=== PATIENT | female | born 1980 | race African-American/Black ===

== ENCOUNTER 2018-01-29 12:11 | Emergency (ER) | payer OTHER ==
--- NOTE | 2018-01-29 12:21 | UC ---
Respiratory Complaint HPI - HPI Summary HPI Summary: 37 yo female presents with increased anxiety/stress. She tells me that in the past she was seeing her PCP and was being "helped" through anxiety issues and stress in her life. Over the last 8 months her symptoms have been returning. 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 She will rest and her symptoms will improve within a few hours. She was sent home from work last night due to these symptoms. She no longer has a PCP. This early afternoon she was getting ready to go to work and her symptoms began to return. Currently she denies fever, chills, cough, SOB, chest pain - but does feel chest "tightness", abdominal pain, n/v. - History of Current Complaint Stated Complaint: CONGESTION COUGH Time Seen by Provider: 01/29/18 12:21 Hx Obtained From: Patient Hx Last Menstrual Period: 12/29/17 Onset/Duration: Gradual Onset Severity Initially: Moderate Severity Currently: Moderate Pain Intensity: 7 Pain Scale Used: 0-10 Numeric - Allergies/Home Medications Allergies/Adverse Reactions: Allergies Allergy/AdvReac Type Severity Reaction Status Date / Time No Known Allergies Allergy Verified 01/29/18 12:30 PMH/Surg Hx/FS Hx/Imm Hx Psychological History: Anxiety - Surgical History Surgical History: Yes Surgery Procedure, Year, and Place: csection, d&c - Family History Known Family History: Positive: Unknown - Social History Occupation: Employed Full-time Lives: With Family Alcohol Use: None Substance Use Type: Marijuana Substance Use Comment - Amount & Last Used: this morning Smoking Status (MU): Light Every Day Tobacco Smoker Type: Cigarettes Amount Used/How Often: 5 per day - working on quitting Have You Smoked in the Last Year: Yes Household Exposure Type: Cigarettes - Immunization History Most Recent Influenza Vaccination: unknown Most Recent Tetanus Shot: unknown Most Recent Pneumonia Vaccination: never Review of Systems All Other Systems Reviewed And Are Negative: Yes Constitutional: Positive: Negative Skin: Positive: Negative Respiratory: Positive: Negative Cardiovascular: Positive: Other - Chest tightness Gastrointestinal: Positive: Negative Neurovascular: Positive: Negative Neurological: Positive: Negative Psychological: Positive: Anxious Physical Exam - Summary Physical Exam Summary: GENERAL: NAD. WDWN. No pain distress. SKIN: No rashes, sores, lesions, or open wounds. HEENT: Head: AT/NC Eyes: EOM intact. Conjunctiva clear without inflammation or discharge. Ears: Hearing grossly normal. TMs intact, no bulging, erythema, or edema. Nose: Nasal mucosa pink and moist. NTTP maxillary and frontal sinus. Throat: Posterior oropharynx without exudates, erythema, or tonsillar enlargement. Uvula midline. NECK: Supple. Nontender. No lymphadenopathy. CHEST: CTAB. No r/r/w. No accessory muscle use. Breathing comfortably and in no distress. CV: RRR. Without m/r/g. Pulses intact. Cap refill <2seconds ABDOMEN: Soft. NTTP. Bowel sounds present NEURO: Alert. PSYCH: Age appropriate behavior. Triage Information Reviewed: Yes Vital Signs: Vital Signs: Temp Pulse Resp BP Pulse Ox 98.7 F 80 16 132/86 99 01/29/18 12:24 01/29/18 12:24 01/29/18 12:24 01/29/18 12:24 01/29/18 12:24 Vital Signs Reviewed: Yes Re-Evaluation - Re-Evaluation First Eval Re-Evaluation Time: 13:17 Change: Improved Comment: Feels improved after hydroxyzine. Less tightness in chest and feels more relaxed. Respiratory Course/Dx - Course Course Of Treatment: EKbpm NSR. 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 No ST changes as read by Dr. Link. Suspect anxiety/stress reaction. Pt was given 50mg of hydroxyzine in the clinic and significantly improved - reports feeling more relaxed and less thightness in her chest. Discussed with pt that if her symptoms worsen or if she develops new symptoms - to go to the ED for a further workup. Strongly advised to schedule a follow up with a new PCP as soon as possible, preferably within the next week or two. Pt was agreeable to this plan and voiced understanding. - Differential Dx/Diagnosis Provider Diagnosis: Anxiety Discharge - Sign-Out/Discharge Documenting (check all that apply): Patient Departure All imaging exams completed and their final reports reviewed: No Studies - Discharge Plan Condition: Stable Disposition: HOME Prescriptions: hydrOXYzine HCl [Hydroxyzine HCl] 50 mg PO TID PRN #30 tablet PRN Reason: Anxiety Patient Education Materials: Relaxation and Meditation (ED), Anxiety (ED), Breathing Techniques (ED) Forms: *Work Release Referrals: No Primary Care Phys,NOPCP [Primary Care Provider] - [facility] REFERRAL [Outside] - As Soon As Possible Additional Instructions: If you develop a fever, shortness of breath, chest pain, new or worsening symptoms - please call your PCP or go to the ED. 1) Please schedule an appointment as soon as possible with a new Primary Care Physician - Billing Disposition and Condition Condition: STABLE Disposition: Home
[2018-01-29 12:29] VITALS: BP 132/86
[2018-01-29] MEDS ORDERED: hydrOXYzine HCL TAB* 50 MG PO ONE (12:34)
[2018-01-29] MEDS ORDERED: hydrOXYzine HCL TAB* 25 MG PO ONE (12:43)
== END 2018-01-29 13:25 | disposition home or self-care (01) ==
LOC: UCEAST 12:11
DX: F41.9 Anxiety disorder, unspecified (principal); F17.210 Nicotine dependence, cigarettes, uncomplicated
CPT/HCPCS: 93005; 99212; A9270-GY; G0463

== ENCOUNTER 2018-04-04 08:40 | Emergency (ER) | payer OTHER ==
[2018-04-04 08:53] VITALS: BP 134/88
--- NOTE | 2018-04-04 09:46 | UC ---
Lower Extremity/Ankle HPI - HPI Summary HPI Summary: ONSET OF LEFT HEEL PAIN ABOUT 2 DAYS AGO. NO DISCRETE INJURY OR TRAUMA THAT SHE CAN RECALL. PAIN IS WORSE WHEN SHE PUTS ON HER SHOES AND TRIES TO WEIGHT- BEAR. 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 - History of Current Complaint Chief Complaint: UCLowerExtremity Stated Complaint: HEEL PAIN Time Seen by Provider: 04/04/18 08:57 Hx Obtained From: Patient Hx Last Menstrual Period: 04/02/18 Onset/Duration: Gradual Onset, Lasting Days, Still Present Severity Initially: Moderate Severity Currently: Moderate Pain Intensity: 5 Pain Scale Used: 0-10 Numeric Aggravating Factor(s): Standing, Ambulation Alleviating Factor(s): Rest Able to Bear Weight: Yes - Allergies/Home Medications Allergies/Adverse Reactions: Allergies Allergy/AdvReac Type Severity Reaction Status Date / Time No Known Allergies Allergy Verified 04/04/18 08:54 PMH/Surg Hx/FS Hx/Imm Hx Cardiovascular History: Hypertension - Surgical History Surgical History: Yes Surgery Procedure, Year, and Place: csection,2 d&c 4 - Family History Known Family History: Positive: Non-Contributory - Social History Alcohol Use: Occasionally Substance Use Type: Marijuana Substance Use Comment - Amount & Last Used: this morning Smoking Status (MU): Light Every Day Tobacco Smoker Type: Cigarettes Amount Used/How Often: 5 per day - working on quitting Have You Smoked in the Last Year: Yes Household Exposure Type: Cigarettes - Immunization History Most Recent Influenza Vaccination: unknown Most Recent Tetanus Shot: unknown Most Recent Pneumonia Vaccination: never Review of Systems All Other Systems Reviewed And Are Negative: Yes Constitutional: Positive: Negative Skin: Positive: Negative Respiratory: Positive: Negative Cardiovascular: Positive: Negative Gastrointestinal: Positive: Negative Musculoskeletal: Positive: Other: - LEFT HEEL PAIN Physical Exam Triage Information Reviewed: Yes Appearance: Well-Appearing, No Pain Distress, Well-Nourished Vital Signs: Initial Vital Signs Temp 97.9 F 04/04/18 08:50 Pulse 83 04/04/18 08:50 Resp 18 04/04/18 08:50 BP 134/88 04/04/18 08:50 Pulse Ox 100 04/04/18 08:50 Vital Signs Reviewed: Yes Eyes: Positive: Conjunctiva Clear ENT: Positive: Hearing grossly normal Neck: Positive: Supple Respiratory: Positive: No respiratory distress, No accessory muscle use Cardiovascular: Positive: Pulses Normal Abdomen Description: Positive: Soft Musculoskeletal: Positive: ROM Intact, No Edema, Other: Neurological: Positive: Alert Psychological: Positive: Age Appropriate Behavior Skin: Negative: Rashes Diagnostics - Radiology LEFT HEEL XRAYS Radiology Interpretation Completed By: Radiologist Summary of Radiographic Findings: UNREMARKABLE Lower Extremity Course/Dx - Course Course Of Treatment: X-RAY READ UNREMARKABLE BY RADIOLOGY. THERE IS A SMALL CALCIFICATION OF THE ACHILLES TENDON INSERTION RIGHT WHERE THE POINT OF TENDERNESS IS. THIS MAY OR MAY NOT BE CONTRIBUTING TO HER DISCOMFORT. SHAILESH WRAP APPLIED TO HELP WITH STABILITY AND SUPPORT. ADVISED TO REST, ICE, ELEVATE. WILL GIVE TODAY OFF WORK. FOLLOW-UP WITH ORTHO IF NOT IMPROVING EXPECTED. - Differential Dx/Diagnosis Provider Diagnosis: Left Achilles tendinitis Discharge - Sign-Out/Discharge Documenting (check all that apply): Patient Departure All imaging exams completed and their final reports reviewed: Yes - Discharge Plan Condition: Stable Disposition: HOME Patient Education Materials: Achilles Tendinitis (ED) Forms: *Work Release Referrals: Breanna Hidalgo MD [Medical Doctor] - If Needed Additional Instructions: X-RAY TODAY SHOWED MILD CALCIFICATION OF YOUR ACHILLES TENDON. NO FRACTURE OR OTHER ABNORMALITY OF THE HEEL NOTED. REST, ICE, ELEVATE. IF YOU DO NOT IMPROVE EXPECTED OVER THE NEXT COUPLE OF WEEKS FOLLOW-UP WITH YOUR PCP OR ORTHO. - Billing Disposition and Condition Condition: STABLE Disposition: Home
== END 2018-04-04 09:55 | disposition home or self-care (01) ==
LOC: UCEAST 08:40
DX: M76.62 Achilles tendinitis, left leg (principal); I10 Essential (primary) hypertension; F17.210 Nicotine dependence, cigarettes, uncomplicated
CPT/HCPCS: 99212; G0463

== ENCOUNTER 2019-05-19 01:06 | Inpatient (IN) | payer OTHER ==
[2019-05-19] MEDS ORDERED: Lactated Ringers 1000 ML Bag* 1,000 ML IV ONE (04:12)
[2019-05-19] MEDS ORDERED: Buffered Lidocaine 1% SYRIN* 1 ML/SYRINGE INTRADERM ONE (04:12)
[2019-05-19] MEDS ORDERED: ceFOXitin 2 GM IVPREMIX* 2 GM/50 ML BAG IVPB ONE (04:12)
--- NOTE | 2019-05-19 04:22 | HP ---
General Information - Reason for Visit Pt presents with frequent ctx since about midnight tonight. Getting more uncomfortable. Pt has scheduled repeat C/S in 2 days as she has a h/o two prior C/S. Pt also still desires BTL. - General Information Maternal Age: 38 Grav: 4 Para: 2 SAB: 0 IEA: 1 Estimated Due Date: 05/27/19 Determined By: LMP Maternal Blood Type and Rh: B Positive - Results this Serology/RPR Result: Non-Reactive Rubella Result: Non-Immune HBsAg Result: Negative HIV Result: Negative GBS Culture Result: Negative Past Medical History Delivery History: Hx C/Section - x2 Pertinent Past Medical History: See Records - obesity, PCOS Pertinent Past Surgical History: See Records - C/S x2, D&C x3 - Antepartal Records Antepartal Records: Reviewed, Complicated by: - C/S x2, AMA Review of Systems Constitutional: Uncomfortable CV Complaint: No Respiratory: Shortness of Breath: No Gastrointestinal: No Nausea/Vomiting Genitourinary: No Dysuria, No Bleeding, No Leaking Fluid Musculoskeletal: Contractions Neurological: No Headache Movement: Normal Exam Allergies/Adverse Reactions: Allergies No Known Allergies Allergy (Verified 05/19/19 01:37) VS normal, afebrile - Measurements Height: 5 ft 7 in Weight: 223 lb Weight in lbs: [phone] Body Mass Index (BMI): 34.9 Pre- Weight: 167 lb Weight Gained This : 56 lbs and 0 ozs - Exam Breast: Breast Exam Deferred CVA: No CVA Tenderness Heart: Normal Rhythm/Heart Sounds HEENT: No Significant Findings Lungs: Clear Bilaterally Rectal: Rectal Exam Deferred - Abdominal Exam Abdomen Exam: Non-Tender, Fundal Height Consistent with Dates - Ultrasound/Biophysical Profile Ultrasound Status: Not Done Targeted Exam Findings Cervical Exam: Closed Effacement: 70% Station: -2 Membrane Status: Intact Bleeding/Discharge: None EFM Findings - External Monitor Findings Baseline Heart Rate: 150 External Monitor Findings: Accelerations Present, No Pattern of Variable or Late Decelerations, Variability Moderate, Baseline Stable Contractions: Regular, Moderate Contraction Frequency: Q3 min Assessment/Plan - Assessment Pt at 38+6 wks and h/o C/S x2 presents with very regular and painful ctx, Q3 min. Over a few hours of observation, ctx did not improve. After discussion pt desires to proceed with repeat C/S today. She also still strongly desires BTL. Consent signed. Will proceed with surgery tonight. - Plan Plan: C/S Delivery - Date/Time of Admission Date of Admission: 05/19/19 Time of Admission: 04:10
[2019-05-19 05:00] LABS: ABS Eosinophils 0.1 10^3/ul (0-0.6); ABS Monocytes 0.8 10^3/ul (0-0.8); Eosinophil % 1.6 %; Hematocrit 32 % (35-47); Hemoglobin 10.9 g/dL (12.0-16.0); Lymphocyte % 21.9 %; Mean Corpuscular HGB Conc 34 g/dL (31-36); Mean Corpuscular Hemoglobin 27 pg (27-31); Mean Corpuscular Volume 80 fL (80-97); Mean Platelet Volume 9.3 fL (7.4-10.4); Nucleated Red Blood Cells % 0.2; Platelet Count 134 10^3/uL (150-450); Red Blood Count 4.06 10^6 /uL (3.70-4.87); Red Cell Distribution Width 14 % (10-15)
[2019-05-19] MEDS ORDERED: Lactated Ringers 1000 ML Bag* 1,000 ML IV SCH ×2 (05:00→08:00)
[2019-05-19] MEDS ORDERED: Sodium Citrate/Citric Acid* 15 ML UDC ONE (05:16)
[2019-05-19 05:40] LABS: Urine Benzodiazepine Screen None Detected (None Detect); Urine Opiates Screen None Detected (None Detect)
[2019-05-19] MEDS ORDERED: fentaNYL* 50 MCG/ML 2 ML VIAL (100 MCG VIAL) ONE (05:47)
[2019-05-19] MEDS ORDERED: Morphine PF AMP (0.5MG/ML)* 5 MG/10 ML AMP ONE (05:47)
[2019-05-19] MEDS ORDERED: EPHEDrine (Pressors)* 50 MG/ML VIAL ONE (05:48)
[2019-05-19] MEDS ORDERED: Phenylephrine 40 MCG/ML SYRINGE ONE ×2 (05:48→07:02)
[2019-05-19] MEDS ORDERED: Ondansetron INJ* 2 MG/ML VIAL ONE (06:43)
[2019-05-19] MEDS ORDERED: Metoclopramide IV* 5 MG/ML 2 ML VIAL ONE (06:43)
[2019-05-19] MEDS ORDERED: OXYTOCIN* 10 UNITS/ML 1 ML VIAL ONE ×2 (06:44→07:25)
[2019-05-19] MEDS ORDERED: Witch Hazel PAD* JAR TOPICAL PRN (07:38)
[2019-05-19] MEDS ORDERED: Naloxone* 0.4 MG/ML 1 ML VIAL IV PRN ×2 (08:13→08:56)
[2019-05-19] MEDS ORDERED: DiMENhydriNATE IV* 50 MG/ML VIAL IV PUSH PRN (08:56)
[2019-05-19] MEDS ORDERED: Ondansetron INJ* 2 MG/ML VIAL IV PRN (08:56)
[2019-05-19] MEDS: oxyCODONE/Acetamin 5/325 MG* TAB PO PRN ×2 (09:16→18:40)
[2019-05-19] MEDS: Simethicone TAB* 80 MG TAB.CHEW PO SCH ×4 (09:17→20:21)
--- NOTE | 2019-05-19 09:24 | OP ---
DATE OF OPERATION: 05/19/19 - ROOM #104 DATE OF : 80 SURGEON: Bob Paris MD PATTERN GRADER SUPERVISOR: Prasanth Yeager CNM. PRE-OP DIAGNOSES: 38 plus 6 weeks gestation with history of 2 prior C-sections and active labor and satisfied parity. POST-OP DIAGNOSES: 38 plus 6 weeks gestation with history of 2 prior C- sections and active labor and satisfied parity. OPERATIVE PROCEDURE: Repeat low transverse section and bilateral tubal ligation. ANESTHESIA: Spinal. MATERIALS TO LAB: Cord blood and bilateral tube segments. ESTIMATED BLOOD LOSS: 600 cc. URINE OUTPUT: 100 cc IV fluids. IV FLUIDS: 1300 cc lactated Ringer's. INDICATIONS: This patient was a 38-year-old 4, para 2, who presented tonight with persistent contractions about 2 to 3 minutes, which were fairly strong. The patient was observed for several hours and the contractions did not decrease and she is becoming more uncomfortable. Considering the patient was scheduled for her section in 2 days, the decision was made to proceed with her delivery today. The patient had previously expressed a strong desire for a bilateral tubal ligation for permanent sterilization. The patient signed her sterilization consent form more than 1 month ago and she said it was in the office records which are not available at this time. She was extensively counseled for the procedure and consent was signed. FINDINGS: Normal-appearing uterus, fallopian tubes, and ovaries. Delivery is productive of a female weighing 6 pounds 15 ounces with Apgars of 9 and 9. COMPLICATIONS: None. DESCRIPTION OF PROCEDURE: The risks, benefits, and alternatives were described to the patient, and informed consent was obtained. The patient was taken to the operating room with IV running, where spinal anesthesia was induced and found to be adequate. The patient was prepped and draped in normal sterile fashion in the dorsal supine position with a leftward tilt. A Pfannenstiel skin incision was made with a scalpel through the patient's previous incision. This was carried down to the underlying fascia using the scalpel. The fascia was scored in the midline, and the incision was extended using Duong scissors. The fascia was dissected off the underlying rectus muscles using blunt and sharp dissection. The rectus muscles were in the midline using dissection with a Germaine clamp. The peritoneum was then entered bluntly. A bladder blade was placed. A bladder flap was created sharply using Metzenbaum scissors. A low transverse uterine incision was then made with the scalpel. This was carried down to the amniotic membranes. The membranes were then ruptured, productive of clear fluid. The uterine incision was extended using blunt traction. The head was elevated to the level of the incision, and, with fundal pressure, the head delivered without difficulty. The shoulders then were also both delivered and the body followed. The infant had excellent tone and cried immediately on delivery. The cord was doubly clamped and cut. The infant was then handed to the awaiting business strategy manager. Cord blood was collected. The placenta was delivered with manual extraction. The uterus was then exteriorized and cleared of all clots and debris. The uterine incision was then reapproximated using 0 Polysorb in a running-locked fashion. A second layer of imbricating 0 Polysorb sutures was then also placed for good hemostasis. The posterior cul-de-sac was irrigated with saline. The uterus was then returned to the abdomen. The incision was reinspected and still noted to be hemostatic. The peritoneum was closed with 2-0 chromic in a running fashion. The fascia was closed with 0 Polysorb in a running fashion. The subcutaneous tissues were copiously irrigated and made hemostatic using the Bovie. The subcutaneous tissues were then reapproximated using 2-0 chromic in interrupted sutures. The skin was then closed with matthew. A sterile bandage was then placed over the incision. The patient tolerated the procedure well. Sponge, lap, and needle counts were correct x2. [id number]/[facility] #: [id number] NADER
[2019-05-19] MEDS: Docusate CAP* 100 MG PO SCH ×3 (09:34→20:21)
[2019-05-19] MEDS ORDERED: Ibuprofen TAB* 600 MG PO SCH (10:00)
[2019-05-19] MEDS: Ferrous Gluconate TAB* 324 MG TAB PO SCH (10:41)
[2019-05-19] MEDS: diPHENhydraMINE IV* 50 MG/ML 1 ml VIAL (BENADRYL) IV PRN ×2 (12:16→20:20)
[2019-05-19] MEDS ORDERED: Ketorolac INJ* 30 MG/ML 1 ML VIAL IV PRN (13:37)
[2019-05-19] MEDS: Ibuprofen TAB* 600 MG PO SCH (22:40)
[2019-05-19] MEDS ORDERED: oxyCODONE TAB* 5 MG TAB PO PRN (23:00)
[2019-05-20] MEDS: Ibuprofen TAB* 600 MG PO SCH ×3 (04:00→17:56)
[2019-05-20 06:20] LABS: ABS Eosinophils 0.1 10^3/ul (0-0.6); ABS Lymphocytes 1.4 10^3/ul (1.0-4.8); ABS Monocytes 0.9 10^3/ul (0-0.8); ABS Neutrophils 6.9 10^3/ul (1.5-7.7); Hematocrit 29 % (35-47); Hemoglobin 9.7 g/dL (12.0-16.0); Lymphocyte % 14.6 %; Mean Corpuscular HGB Conc 33 g/dL (31-36); Mean Corpuscular Hemoglobin 27 pg (27-31); Mean Corpuscular Volume 80 fL (80-97); Mean Platelet Volume 8.8 fL (7.4-10.4); Nucleated Red Blood Cells % 0.1; Platelet Count 124 10^3/uL (150-450); Red Blood Count 3.63 10^6 /uL (3.70-4.87); Red Cell Distribution Width 14 % (10-15); White Blood Count 9.4 10^3/uL (3.5-10.8)
[2019-05-20] MEDS: Simethicone TAB* 80 MG TAB.CHEW PO SCH ×4 (08:51→21:09)
[2019-05-20] MEDS: Docusate CAP* 100 MG PO SCH ×3 (08:51→21:09)
[2019-05-20] MEDS: Ferrous Gluconate TAB* 324 MG TAB PO SCH (08:51)
[2019-05-20] MEDS: oxyCODONE TAB* 5 MG TAB PO PRN ×3 (08:52→21:09)
[2019-05-20] MEDS: Acetaminophen TAB* 325 MG PO PRN ×2 (17:56→22:33)
[2019-05-21] MEDS: Ibuprofen TAB* 600 MG PO SCH ×3 (00:07→11:52)
[2019-05-21] MEDS: Acetaminophen TAB* 325 MG PO PRN ×2 (02:55→08:23)
[2019-05-21] MEDS: oxyCODONE TAB* 5 MG TAB PO PRN ×2 (02:55→08:24)
[2019-05-21 08:09] VITALS: BP 136/88
[2019-05-21] MEDS: Simethicone TAB* 80 MG TAB.CHEW PO SCH (08:23)
[2019-05-21] MEDS: Ferrous Gluconate TAB* 324 MG TAB PO SCH (08:23)
[2019-05-21] MEDS: Docusate CAP* 100 MG PO SCH (08:23)
== END 2019-05-21 12:00 | disposition home or self-care (01) | DRG 540 ==
LOC: MCHOBOUT 01:06 → MCHOB 04:06
PROVIDERS: ADMIT Obstetrics & Gynecology; ATTEND Obstetrics & Gynecology
PROC: 4A1HXCZ Monitoring of Products of Conception, Cardiac Rate, External Approach (ICD-10-PCS; 2019-05-19)
PROC: 0UB70ZZ Excision of Bilateral Fallopian Tubes, Open Approach (ICD-10-PCS; 2019-05-19)
PROC: 10D00Z1 Extraction of Products of Conception, Low, Open Approach (ICD-10-PCS; principal; 2019-05-19 05:55)
DX: O34.211 Maternal care for low transverse scar from previous cesarean delivery (principal); O99.214 Obesity complicating childbirth; O90.81 Anemia of the puerperium; Z3A.38 38 weeks gestation of pregnancy; Z37.0 Single live birth; Z30.2 Encounter for sterilization
CPT/HCPCS: 36415; 80307; 85025; 86850; 86900; 86901; 88302; A9270-GY; G0480; J0694; J1200; J1885; J2405; J2590; J2765; J3010